=== PATIENT | female | born 1985 | race Caucasian/White ===

== ENCOUNTER → 2016-11-22 | Outpatient (CLI) | payer BC ==
[2016-11-22 14:04] LABS: Hemoglobin A1C 5.2 % (4.2-6.1)
== END | disposition home or self-care (01) ==
LOC: LABWHC1 09:44
PROVIDERS: ATTEND Internal Medicine Endocrinology, Diabetes & Metabolism
DX: E03.8 Other specified hypothyroidism (principal); R73.9 Hyperglycemia, unspecified
CPT/HCPCS: 36415; 83036; 84439; 84443

== ENCOUNTER 2017-01-02 10:00 | Observation (INO) | payer BC ==
[2016-12-31 16:00] VITALS: BMI 40.2
[~2017-01-02 10:00] MED LIST: DEXAMETHASONE SOD PHOSPHATE 10 MG/ML 1 ML VIAL IV ONE; HEPARIN SODIUM,PORCINE 5,000 UNIT/ML 1 ML VIAL SQ ONE; MIDAZOLAM 2 MG/2 ML VIAL IV PRN; ONDANSETRON 4 MG/2 ML VIAL IVP ONE; ceFAZolin 2 GM in SODIUM CHLORIDE 0.9% 100 ML IVPB ONE
[2017-01-02] MEDS ORDERED: BUPIVACAIN-EPI 0.25%-1:200,000 30 ML VIAL SQ ONE ×3 (10:39→13:04)
[2017-01-02] MEDS: LACTATED RINGERS 1,000 ML IV SCH (10:50)
[2017-01-02] MEDS ORDERED: ROCURONIUM BROMIDE 10 MG/ML 10 ML VIAL IV ONE (12:32)
[2017-01-02] MEDS ORDERED: fentaNYL (PF) 50 MCG/ML 2 ML AMP ONE (12:32)
[2017-01-02] MEDS ORDERED: NEOSTIGMINE 1 MG/ML 10 ML VIAL ONE (12:32)
[2017-01-02] MEDS ORDERED: PROPOFOL 10 MG/ML 20 ML VIAL IV ONE (12:32)
[2017-01-02] MEDS ORDERED: MIDAZOLAM 2 MG/2 ML VIAL ONE (12:32)
[2017-01-02] MEDS ORDERED: LIDOCAINE 1% INJ 10MG/ML (20 ML MDV) ONE (12:32)
[2017-01-02] MEDS ORDERED: ONDANSETRON 4 MG/2 ML VIAL ONE (12:32)
[2017-01-02] MEDS ORDERED: GLYCOPYRROLATE 0.2 MG/ML 2 ML VIAL ONE (12:32)
[2017-01-02] MEDS ORDERED: SUCCINYLCHOLINE CHLORIDE 100 MG/5 ML SYR IV ONE (12:32)
[2017-01-02] MEDS ORDERED: HYDROmorphone (PF) 1 MG/ML ONE (12:32)
[2017-01-02] MEDS ORDERED: LACTATED RINGERS 1,000 ML IV ONE ×2 (14:20)
[2017-01-02] MEDS: HYDROmorphone 1 MG/ML 1 ML SYRINGE IVP PRN ×2 (14:59→15:03)
[2017-01-02] MEDS ORDERED: PROMETHAZINE INJ 6.25 MG in SODIUM CHLORIDE 0.9% 50 ML IVPB STA (17:16)
[2017-01-02] MEDS ORDERED: SCOPOLAMINE 1.5MG/72HR PATCH TRANSDERM STA (19:28)
[2017-01-02] MEDS ORDERED: METOCLOPRAMIDE 5 MG/ML 2 ML VIAL IVP ONE (19:42)
[2017-01-02] MEDS ORDERED: HYDROmorphone 1 MG/ML 1 ML SYRINGE IVP ONE (21:36)
[2017-01-02] MEDS ORDERED: METOCLOPRAMIDE 5 MG/ML 2 ML VIAL IVP PRN (22:21)
[2017-01-02] MEDS ORDERED: ACETAMINOPHEN IV (For NPO) 1,000 MG in EMPTY BAG 1 BAG IVPB PRN (22:22)
[2017-01-03] MEDS: LACTATED RINGERS 1,000 ML IV SCH ×3 (00:19→09:43)
[2017-01-03] MEDS: ONDANSETRON 4 MG/2 ML VIAL IVP PRN ×2 (00:22→05:58)
[2017-01-03] MEDS: HYDROmorphone 1 MG/ML 1 ML SYRINGE IVP PRN ×3 (01:35→09:42)
[2017-01-03 06:06] VITALS: RESP 16
--- NOTE | 2017-01-03 08:23 | P.OP ---
Date of Procedure: 01/02/17 Preoperative Diagnosis: Umbilical hernia Morbid obesity BMI 40.2 Postoperative Diagnosis: Same Procedure(s) Performed: UMBILICAL HERNIA REPAIR WITH MESH Implants: Ventralight ST 11.4 cm circular mesh Anesthesia: HARRIS, local Surgeon: Montserrat Jones Estimated Blood Loss (ml): 5 Pathology: none sent Condition: stable Disposition: PACU Indications for Procedure: 31 years old female presented with umbilical hernia. Informed consent obtained and she elected to undergo robotic-assisted laparoscopic umbilical hernia repair with mesh. Operative Findings: Primary umbilical hernia. Description of Procedure: The patient was brought to the operating room and placed in supine position. General anesthesia with endotracheal intubation was performed as per anesthesia team. The right arm was tucked against the body and a footboard was applied. Chlorhexidine was used to prep the skin followed by application of sterile drapes and Ioban dressing. A timeout was performed to verify correct patient and correct procedure. Patient was confirmed to receive perioperative IV antibiotics , bilateral SCDs and 5000 units of subcutaneous heparin for VTE prophylaxis. A 5 mm skin incision was made along the left midaxillary line and a Veress needle was inserted to establish the pneumoperitoneum to a pressure of 15 mm of Hg. Using a 5 mm 30 laparoscope the peritoneal cavity was entered using the Optiview technique. Additional 12 mm trocar was placed in the mid axillary line in the left mid abdomen and robotic 8 mm trocar in the left lower abdomen. The 5 mm trocar was upsized to 8 mm robotic trocar. The da Linda robot was then docked. The 30 robotic camera was used. A robotic prograsp and monopolar scissors were inserted through 8 mm robotic trocars The hernia defect contained preperitoneal fat and omentum which were reduced using gentle traction and countertraction method. The falciform ligament was divided using monopolar scissors close to the anterior abdominal wall to create a landing zone for the mesh. A Ventralight ST 11.4 cm circular mesh was tagged in the center using a prolene stitich and was rolled and introduced to the abdominal cavity via the 12 mm trocar. The hernia defect was closed primarily with running sutures using O- V lock by taking 1 cm bite on the fascia on either side of the defect. A Roldan Abdirahman device was inserted through the middle of the hernia defect and the stay suture on the mesh was grasped to elevate the mesh against the anterior abdominal wall. The mesh was circumferentially sutured to the peritoneum of the anterior abdominal wall using 2-0 V lock without any folds or kinks. The robot was then undocked. Laparoscopic 30 degrees camera was reinserted. All trocar sites were examined. No evidence of bleeding. The 12 mm trocar site was closed using two transfascial sutures of 0 Vicryl which were placed using a [employer] device. The pneumoperitoneum was evacuated and all the skin incisions were closed using 4-0 Monocryl followed by Dermabond skin glue. Telfa and Tegaderm dressings were applied. The sponge, instrument and needle count were correct x2. Abdominal binder was applied. The patient was extubated and taken to post anesthesia care unit in stable condition.
[2017-01-03 08:48] VITALS: BP 107/57; TEMP 97.9
[2017-01-03 11:20] VITALS: PULSE 71
--- NOTE | 2017-01-03 14:17 | P.DS ---
Providers Date of admission: 01/03/17 01:15 Expected date of discharge: 01/03/17 Attending physician: Montserrat Jones Primary care physician: Stated None Hospital Course: this is a 31-year-old who was admitted on elective basis to undergo on January 02 umbilical hernia repair with mesh postop patient developed episode of postop nausea vomiting. This did resolve on the day of discharge was felt to be appropriate to be discharged to home impression discharge diagnosis Postop robotic-assisted laparoscopic umbilical hernia repair with mesh postop nausea vomiting resolved morbid obesity BMI 40 The above dictated assessment and findings were discussed with dr jones. Impression and the plan of care have been dictated as directed. Carmen Garcia nurse practitioner acting as a scribe for dr jones Plan - Discharge Summary Discharge Medication List Docusate [Colace] 100 mg PO BID 01/03/17 [History] HYDROcodone/APAP 5-325MG [Coleman 5-325] 1 tab PO Q4HR PRN 01/03/17 [History] Follow up Appointment(s)/Referral(s): Montserrat Jones MD [STAFF PHYSICIAN] - 01/14/17 (PLEASE CALL AND MAKE FOLLOW UP , OFFICE CLOSED) Patient Instructions/Handouts: *Surgery [facility] - (Anesthesia) Discharge Instructions Outpatient Surgery, Scopolamine (Absorbed through the skin), Umbilical Hernia (DC) Activity/Diet/Wound Care/Special Instructions: OK to shower . No soaking bath. No heavy lifting more than 10 lbs for 6 weeks post surgery. No driving while taking narcotics for pain. May use ice packs for local pain relief Take Motrin 600 mg po TID after meals if pain is not controlled Use incentive spirometry 10 times an hour while awake USe abdominal binder as needed Discharge Disposition: HOME SELF-CARE
== END 2017-01-03 15:30 | disposition home or self-care (01) ==
LOC: OR 10:00 → 3OBS 14:29 → OR 01-03 01:15 → 3OBS 01-03 01:15
PROVIDERS: ADMIT Surgery; ATTEND Surgery
DX: K42.9 Umbilical hernia without obstruction or gangrene (principal); R11.2 Nausea with vomiting, unspecified; E66.01 Morbid (severe) obesity due to excess calories; Z68.41 Body mass index [BMI] 40.0-44.9, adult
CPT/HCPCS: 49652; 81025; 86900; 86901; 86850; G0378; C1781; J2250; J1644; J1100; J2550; J2710; J2765; J0690; J2405 ×2; J2001; J3010; J1170 ×2; J0131; J0330; J2704; 96365; 96375; 96376

== ENCOUNTER → 2017-09-23 | Outpatient (CLI) | payer BC | END | disposition home or self-care (01) | LOC: LABWHC1 10:13 | PROVIDERS: ATTEND Internal Medicine Endocrinology, Diabetes & Metabolism | DX: E03.8 Other specified hypothyroidism (principal) | CPT/HCPCS: 36415; 84439; 84443; 84480; 86376 ==

== ENCOUNTER → 2018-06-22 | Day surgery (SDC) | payer BC ==
[2018-06-16 12:01] VITALS: BMI 42.9
--- NOTE | 2018-06-18 18:53 | HP ---
HISTORY AND PHYSICAL HISTORY OF PRESENT ILLNESS: Melisa is a 32-year-old 8, para 4-0-4-4, who presented to the office recently for annual examination with complaint of increasingly irregular and heavy bleeding. Method of contraception is vasectomy. She does not wish to have any hormonal intervention for her irregular bleeding and requested diagnostic hysteroscopy with NovaSure endometrial ablation. Endometrial biopsy performed in the office demonstrated benign tissue only. PAST MEDICAL HISTORY: Significant for hypothyroidism. PAST SURGICAL HISTORY: She has had section on 4 separate occasions as well as a hernia repair in 2017. She has had knee surgery twice at [facility] and she has undergone upper endoscopy in 2012. There is no history of any anesthetic concerns. 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 Current method of contraception is vasectomy. GYNECOLOGIC HISTORY: Unremarkable with no history of any infections to include STDs. FAMILY HISTORY: Noncontributory. SOCIAL HISTORY: The patient is and a nonsmoker. She denies any significant alcohol, drugs, or any other social concerns. CURRENT MEDICATIONS: Include only a vitamin aimed at hair, skin and nails twice daily. ALLERGIES: ASPIRIN CAUSES NAUSEA AND VOMITING AND SHE ALSO HAS AN ALLERGY TO BAND-AID ADHESIVE TAPE. IMITREX IS POTENTIALLY ANAPHYLACTIC AND LATEX CAUSED TOPICAL SKIN REACTIONS WITH BURNING. REVIEW OF SYSTEMS: Is confined to history of present illness. PHYSICAL EXAMINATION: In general, this is a well-developed, well-nourished, moderately obese white female in no acute distress. Her heart has a regular rhythm and rate without murmur. Her lungs are clear to auscultation bilaterally in all verdugo. ABDOMEN: Obese, nondistended, has normoactive bowel sounds, soft, nontender, without any palpable masses, hepatosplenomegaly, or hernias. Her extremities are without any cyanosis, clubbing, or edema and are nontender to palpation bilaterally. Bimanual pelvic examination demonstrates normal external genitalia and the BUS with normal vaginal mucosa and cervix. There is no cervical motion tenderness. Uterus is 5 weeks in size, mid plane, mobile, nontender, normal in shape. The adnexa are normal and nontender without mass bilaterally. ASSESSMENT AND PLAN: Dysfunctional uterine bleeding. We discussed multiple different options for treatment and she has understood and requested diagnostic hysteroscopy with NovaSure endometrial ablation. The risks and complications of the procedure have been thoroughly discussed including the risks for bleeding, bleeding requiring transfusion, infection, and injury to local structures to specifically include uterine perforation, subsequent, Asherman syndrome, and subsequent hematometra. She has understood all these concerns and agreed to proceed and we are scheduled for surgery on the morning of June 22, 2018 for the procedures as outlined above. Surgery on June 22. CHARLIE / IJN: [id number] /
[~2018-06-22] MED LIST changes: +ACETAMINOPHEN IV (For NPO) 1,000 MG in EMPTY BAG 1 BAG IVPB ONE; +ACETAMINOPHEN TAB 325 MG TAB PO PRN; +Acetaminophen-Codeine 300-30mg TAB PO PRN; +GLYCOPYRROLATE 0.2 MG/ML 2 ML VIAL ONE; -HEPARIN SODIUM,PORCINE 5,000 UNIT/ML 1 ML VIAL SQ ONE; +HYDROcodone/APAP 5-325MG 1 EACH TAB PO ONE; +HYDROmorphone 0.5 MG/0.5 ML SYRINGE IVP PRN; +LACTATED RINGERS 1,000 ML IV SCH; +LIDOCAINE 1% 20 ML VIAL (10MG/ML) FOR IV START INTRADERMA ONE; +METOCLOPRAMIDE 5 MG/ML 2 ML VIAL IVP PRN; +MIDAZOLAM 2 MG/2 ML VIAL ONE; +NEOSTIGMINE 1 MG/ML 10 ML VIAL ONE; +ONDANSETRON 4 MG/2 ML VIAL IVP PRN; +PROPOFOL 10 MG/ML 20 ML VIAL IV ONE; +Pre Op ABX Message 1 EACH MISC MISCELLANE ONE; +ROCURONIUM BROMIDE 10 MG/ML 10 ML VIAL IV ONE; +SIMETHICONE 80 MG CHEWABLE PO PRN; -ceFAZolin 2 GM in SODIUM CHLORIDE 0.9% 100 ML IVPB ONE; +diphenhydrAMINE 50 MG/ML 1 ML VIAL IVP PRN; +fentaNYL (PF) 50 MCG/ML 2 ML AMP ONE
[2018-06-22 07:29] VITALS: RESP 16
--- NOTE | 2018-06-22 09:11 | P.OP ---
Date of Procedure: 06/22/18 Preoperative Diagnosis: #1. Dysfunctional uterine bleeding Postoperative Diagnosis: Same Procedure(s) Performed: #1. Diagnostic hysteroscopy and #2. NovaSure endometrial ablation Anesthesia: HARRIS Surgeon: Bharathi Henry Estimated Blood Loss (ml): 5 IV fluids (ml): 500 Urine output (ml): 250 Pathology: none sent Condition: stable Disposition: PACU Operative Findings: Preoperative pelvic examination demonstrated a 5-6 weeks midplane mobile normal shaped uterus with normal adnexa bilaterally though the exam is difficult secondary to patient abdominal habitus. Uterus is also quite high in the pelvis. Intraoperatively, the uterus sounded to 11 cm while the cervix sounded to approximately 5 cm. Using the hysteroscope, the bilateral tubal ostia regions were noted. There was a moderate amount of shaggy tissue in the endometrial cavity and no apparent evidence of pathology to include polyps or fibroids. The settings for the NovaSure tool on the second attempt where a length of 6.0 cm, a width of 3.8 cm, and a total power 125 W. After a total run time of 85 seconds, the base unit read "procedure complete." Attempts to use the first tool had similar length and width measurements as well as power but the tool failed to engage and developed a vacuum failure on several occasions in a row. The postprocedural hysteroscopic result appeared to be excellent. The patient is a poor candidate for vaginal hysterectomy. Description of Procedure: The patient is prepped and draped in usual fashion after general endotracheal anesthesia was administered by the anesthesiologist. A weighted speculum was placed and the bladder drained of approximately 250 mL of clear amanuel urine. The anterior lip of the cervix was grasped with a single-tooth tenaculum and the uterus sounded to 11 cm as noted above with a cervical length of approximate 5 cm. Serial dilation was carried out to admit the diagnostic hysteroscope which was placed to the fundus. The cavity was dilated with normal saline and the findings are as noted above. There was a moderate amount of shaggy tissue present which made clear visualization difficult. The bilateral tubal ostia regions were seen. After adequate hysteroscopy had been carried out, the scope was set aside and the further dilation carried out to admit the NovaSure tool the tool was placed to the fundus of the uterus, opened , and seated well. The initial length and width measurements were 6.0 cm with a width of 3.7 cm. After passing the cavity check of the tool was enabled and the run was started. The run halted approximately 20 seconds into the attempt with a vacuum failure. The tool was re-enabled and the run started again and halted itself again secondary to a vacuum failure an approximate 5-10 seconds into the run. The tool was discarded in favor of a new one which was placed into the cavity, opened, and seated well. The settings on this tool were a length of 6.0 cm with a width of 3.8 cm for a total power 125 W. The cavity check was attempted and passed without difficulty. The tool was enabled and the run was started. After total run time of 85 seconds, the base unit read "procedure complete." The 2 was closed, removed and discarded. The diagnostic scope was replaced into the uterine cavity with an apparent excellent result throughout the cavity. All instrumentation was then removed. There was no ongoing bleeding either from the cervix or the tenaculum site. Estimated blood loss for the entire case was less than 5 mL. There were no complications. All sponge, instrument, and needle counts were correct. The patient tolerated the procedure well and proceeded to the recovery room in stable condition.
[2018-06-22 09:17] VITALS: TEMP 97.1
[2018-06-22] MEDS: LACTATED RINGERS 1,000 ML IV SCH ×2 (09:24→09:36)
[2018-06-22 09:47] VITALS: BP 95/63; PULSE 90
== END | disposition home or self-care (01) ==
LOC: OR 06:48
PROVIDERS: ATTEND Obstetrics & Gynecology
DX: N93.8 Other specified abnormal uterine and vaginal bleeding (principal); E03.9 Hypothyroidism, unspecified; G43.909 Migraine, unspecified, not intractable, without status migrainosus; K21.9 Gastro-esophageal reflux disease without esophagitis; E66.9 Obesity, unspecified; Z68.41 Body mass index [BMI] 40.0-44.9, adult; Z88.8 Allergy status to other drugs, medicaments and biological substances; Z88.6 Allergy status to analgesic agent; Z91.040 Latex allergy status; Z91.048 Other nonmedicinal substance allergy status
CPT/HCPCS: 81025; 58563; J2250; J1100; J2710; J2405; J3010; J2704; J1170

== ENCOUNTER 2021-08-10 16:09 | Emergency (ER) | payer BC, OTHER ==
[2021-08-10 17:20] VITALS: RESP 18
[2021-08-10] MEDS ORDERED: SODIUM CHLORIDE 0.9% 50 ML IVPB ONE (20:00)
[2021-08-10] MEDS ORDERED: BAMLANIVIMAB (EUA) 700 MG, ETESEVIMAB (EUA) 1,400 MG in SODIUM CHLORIDE 0.9% 50 ML IVPB ONE (20:00)
--- NOTE | 2021-08-10 22:06 | XR ---
EXAMINATION TYPE: XR chest 1V portable DATE OF EXAM: 08/10/2021 COMPARISON: NONE HISTORY: Short of breath TECHNIQUE: Single view FINDINGS: Heart and mediastinum are normal. Lungs are clear. Diaphragm is normal. Bony thorax appears normal. IMPRESSION: Normal chest.
--- NOTE | 2021-08-10 22:28 | ED ---
General Adult HPI - General Chief complaint: Recheck/Abnormal Lab/Rx Stated complaint: Covid +, Fever, CAESAR Time Seen by Provider: 08/10/21 17:20 Source: patient Mode of arrival: ambulatory Limitations: no limitations - History of Present Illness Initial comments: 36-year-old female presents emergency departments requesting antibiotic infusion. The patient states that she has a loss of taste and smell, is fatigued with shortness of breath. She has had symptoms since Friday. She tested positive for Covid yesterday on a home test. She did talk to her neighbor who recommended that she come into the emergency department for antibody infusion. Denies fevers. No chest pain. Admits nausea without vomiting. No other alleviating, precipitating or modifying factors - Related Data Home Medications Medication Instructions Recorded Confirmed Ibuprofen [Motrin] 600 mg PO Q6HR PRN 06/16/18 06/22/18 Allergies Allergy/AdvReac Type Severity Reaction Status Date / Time adhesive Allergy Rash/Hives Verified 08/10/21 18:08 aspirin Allergy Nausea & Verified 08/10/21 18:08 Vomiting Latex, Natural Rubber Allergy skin Verified 08/10/21 18:08 irritation, burning,skin peeled off sumatriptan [From Imitrex] Allergy Anaphylaxis Verified 08/10/21 18:08 sumatriptan succinate Allergy Anaphylaxis Verified 08/10/21 18:08 [From Imitrex] Review of Systems ROS Statement: Those systems with pertinent positive or pertinent negative responses have been documented in the HPI. ROS Other: All systems not noted in ROS Statement are negative. Past Medical History Past Medical History: GERD/Reflux Additional Past Medical History / Comment(s): hx migraines, frequent constipation, History of Any Multi-Drug Resistant Organisms: None Reported Past Surgical History: Section, Orthopedic Surgery Additional Past Surgical History / Comment(s): rt knee surgery, hardware removal rt knee Past Anesthesia/Blood Transfusion Reactions: Motion Sickness, Postoperative Nausea & Vomiting (PONV) Additional Past Anesthesia/Blood Transfusion Reaction / Comment(s): "Itchy" after C/S Past Psychological History: No Psychological Hx Reported Smoking Status: Never smoker Past Alcohol Use History: None Reported Past Drug Use History: None Reported - Past Family History Mother Family Medical History: No Reported History General Exam Limitations: no limitations General appearance: alert, in no apparent distress Head exam: Present: atraumatic, normocephalic, normal inspection Eye exam: Present: normal appearance, PERRL, EOMI. Absent: scleral icterus, conjunctival injection, periorbital swelling ENT exam: Present: normal exam, mucous membranes moist Neck exam: Present: normal inspection. Absent: tenderness, meningismus, lymphadenopathy Respiratory exam: Present: normal lung sounds bilaterally. Absent: respiratory distress, wheezes, rales, rhonchi, stridor Cardiovascular Exam: Present: regular rate, normal rhythm, normal heart sounds. Absent: systolic murmur, diastolic murmur, rubs, gallop, clicks GI/Abdominal exam: Present: soft, normal bowel sounds. Absent: distended, tenderness, guarding, rebound, rigid Extremities exam: Present: normal inspection, full ROM, normal capillary refill. Absent: tenderness, pedal edema, joint swelling, calf tenderness Back exam: Present: normal inspection Neurological exam: Present: alert, oriented X3, CN II-XII intact Psychiatric exam: Present: normal affect, normal mood Skin exam: Present: warm, dry, intact, normal color. Absent: rash Course Vital Signs 08/10/21 08/10/21 08/10/21 17:16 18:37 18:38 Temperature 98.7 F 98.5 F Pulse Rate 86 88 Respiratory 18 18 18 Rate Blood Pressure 111/76 117/87 O2 Sat by Pulse 98 98 Oximetry 08/10/21 08/10/21 08/10/21 20:31 21:04 21:15 Temperature 98.0 F 98 F 98.1 F Pulse Rate 78 79 83 Respiratory 18 18 18 Rate Blood Pressure 126/84 116/83 118/81 O2 Sat by Pulse 97 97 96 Oximetry 08/10/21 08/10/21 21:25 22:30 Temperature 98.1 F 98.2 F Pulse Rate 81 82 Respiratory 18 18 Rate Blood Pressure 112/86 107/70 O2 Sat by Pulse 97 96 Oximetry Medical Decision Making - Medical Decision Making Upon arrival patient is placed into room 26. Thorough history and physical exam was performed. Antibody infusion is ordered and we do begin to infusion. Patient does have some acute shortness of breath and therefore discharged off and restarted after 15 minutes. Chest x-rays performed which demonstrates no acute findings. Patient does tolerate the remainder of the infusion. She'll be discharged home and is instructed to follow up with her primary care doctor in 2-4 days. Return to the emergency room for any worsening symptoms per patient agree that treatment plan was discharged home in stable condition Disposition Clinical Impression: COVID-19 Disposition: HOME SELF-CARE Condition: Stable Instructions (If sedation given, give patient instructions): Coronavirus Disease 2019 (COVID-19) Additional Instructions: Please follow up with the primary care doctor in 2-4 days. Return to the emergency room for any new or worsening symptoms Is patient prescribed a controlled substance at d/c from ED?: No Referrals: None,Stated [Primary Care Provider] - 1-2 days Time of Disposition: 22:28
[2021-08-10 22:30] VITALS: BP 107/70; PULSE 82; TEMP 98.2
== END 2021-08-10 22:33 | disposition home or self-care (01) ==
LOC: EC 16:09
DX: U07.1 COVID-19 (principal); K21.9 Gastro-esophageal reflux disease without esophagitis; Z88.1 Allergy status to other antibiotic agents; Z91.040 Latex allergy status
CPT/HCPCS: 99284; 96365; 71045; J3490

== ENCOUNTER → 2022-04-03 | Outpatient (CLI) | payer OTHER ==
--- NOTE | 2022-04-04 08:10 | MM ---
Reason for Exam: Screening (asymptomatic). Baseline mammogram. Patient History: Menarche at age 14. First Full-Term at age 22. Patient has history of breast feeding. Maternal grandmother had breast cancer, age 60. Paternal grandmother had breast cancer, age 62. Risk Values: Alejandrina 5 year model risk: 0.3%. NCI Lifetime model risk: 8.4%. Prior Study Comparison: Patient's first Mammogram. Tissue Density: There are scattered fibroglandular densities. Findings: Analyzed By CAD. There is no suspicious group of microcalcifications or new suspicious mass in either breast. Overall Assessment: Negative, BI-RAD 1 Management: Screening Mammogram of both breasts in 1 year. A clinical breast exam by your physician is recommended on an annual basis and results should be correlated with mammographic findings. Electronically signed and approved by: Craig Franks M.D. Radiologis
== END | disposition home or self-care (01) ==
LOC: RADMAMWWP 09:22
PROVIDERS: ATTEND Obstetrics & Gynecology
DX: Z12.31 Encounter for screening mammogram for malignant neoplasm of breast (principal); Z80.3 Family history of malignant neoplasm of breast
CPT/HCPCS: 77063; 77067